=== PATIENT | male | born 1995 | race Caucasian/White ===

== ENCOUNTER 2018-04-08 22:19 | Observation (INO) | payer MEDICAID, OTHER ==
[~2018-04-08] VITALS: Ht 200.7 cm; Wt 127.3 kg
[2018-04-08 22:54] LABS: BASOPHILS # (AUTO) 0.02 x10^3/uL (0-0.1); BASOPHILS % (AUTO) 0 % (0-1); EOSINOPHILS # (AUTO) 0.09 x10^3/uL (0-0.4); EOSINOPHILS % (AUTO) 1 % (1-7); LYMPHOCYTES # (AUTO) 1.35 x10^3/uL (1-3.4); LYMPHOCYTES % (AUTO) 20 % (22-44); MD NO; MEAN CORPUSCULAR HEMOGLOBIN 28.3 pg (27.5-34.5); MEAN CORPUSCULAR HGB CONC 33.8 g/dL (33.2-36.2); MEAN CORPUSCULAR VOLUME 83.6 fL (81-97); MEAN PLATELET VOLUME 7.5 fL (7.4-10.4); MONOCYTES # (AUTO) 0.61 x10^3/uL (0.2-0.8); MONOCYTES % (AUTO) 9 % (2-9); NEUTROPHILS # (AUTO) 4.67 x10^3/uL (1.8-6.8); NEUTROPHILS % (AUTO) 69 % (42-75); PLATELET COUNT 189 x10^3/uL (130-400); RED BLOOD COUNT 5.75 x10^6/uL (4.38-5.82)
[2018-04-08 23:07] LABS: ALBUMIN 4.2 g/dL (3.4-5.0); ANION GAP 7 mmol/L (5-15); CALCIUM 9.3 mg/dL (8.5-10.1); CHLORIDE 105 mmol/L (98-107); CREATININE 1.09 mg/dL (0.7-1.3)
[2018-04-08 23:12] LABS: SALICYLATE LEVEL < 1.7 mg/dL (2.8-20.0)
[2018-04-08 23:13] LABS: ACETAMINOPHEN < 2 mcg/mL (10-30)
[2018-04-08 23:17] LABS: AMPHETAMINE SCREEN, URINE Negative (Negative); BARBITURATE SCREEN, URINE Negative (Negative); BENZODIAZEPINE SCREEN, URINE Negative (Negative); CANNABINOID SCREEN, URINE Negative (Negative); COCAINE SCREEN, URINE Negative (Negative); METHADONE SCREEN, URINE Negative (Negative); OPIATE SCREEN, URINE Negative (Negative)
[2018-04-09] MEDS ORDERED: IBUPROFEN 600 MG TABLET PO PRN (01:00)
[2018-04-09] MEDS ORDERED: ZIPRASIDONE 20 MG INJ IM PRN (01:00)
[2018-04-09] MEDS ORDERED: DOCUSATE 100 MG CAPSULE PO PRN (01:00)
[2018-04-09] MEDS ORDERED: DIPHENHYDRAMINE 50 MG CAPSULE PO PRN (01:00)
[2018-04-09] MEDS ORDERED: IBUPROFEN 200 MG TABLET PO PRN (01:30)
[2018-04-10 17:37] VITALS: BP 132/80
[2018-04-10 19:33] VITALS: BP 119/76
[2018-04-11 07:55] VITALS: BP 128/64
== END 2018-04-11 15:40 ==
LOC: ED 23:50 → EDIP 23:55 → 2N 04-10 17:30
PROVIDERS: ADMIT Hospitalist; ATTEND Hospitalist
DX: R45.851 Suicidal ideations (principal); F32.2 Major depressive disorder, single episode, severe without psychotic features; F10.10 Alcohol abuse, uncomplicated; F17.210 Nicotine dependence, cigarettes, uncomplicated
CPT/HCPCS: 36415; 80048; 80307; 80329; 82040; 85025; 99285; G0378; G0480